=== PATIENT | female | born 1985 | race Asian ===

== ENCOUNTER 2016-10-31 10:02 | Emergency (ER) | payer MEDICAID ==
[~2016-10-31] VITALS: Ht 160 cm; Wt 60.0 kg
[2016-10-31 10:22] VITALS: BP 122/81
[2016-10-31] MEDS ORDERED: ACETAMINOPHEN 325MG TABLET PO STA (11:20)
[2016-10-31 11:57] LABS: GLUCOSE URINE NEGATIVE (NEGATIVE); KETONES URINE NEGATIVE (NEGATIVE); LEUKOCYTE ESTERASE URINE NEGATIVE (NEGATIVE); NITRITE URINE NEGATIVE (NEGATIVE); OCCULT BLOOD URINE 1+ (NEGATIVE); PROTEIN URINE NEGATIVE (NEGATIVE); SPECIFIC GRAVITY URINE 1.012 (1.005-1.030); UROBILINOGEN URINE 0.2 E.U./dL (0.2-1.0)
[2016-10-31 11:59] LABS: CLARITY URINE CLEAR (CLEAR); COLOR URINE YELLOW (YELLOW)
[2016-10-31 12:09] LABS: BASOPHILS % 1.1 % (0.0-2.0); HEMATOCRIT. 43.9 % (36.0-48.0); HEMOGLOBIN. 14.5 g/dL (12.0-16.0); LYMPHOCYTES % 26.2 % (20.0-50.0); MEAN CORPUSCULAR HEMOGLOBIN 30.2 pg (28.0-32.0); MEAN CORPUSCULAR HGB CONC 33.1 g/dL (31.0-37.0); MEAN CORPUSCULAR VOLUME 91.2 fL (81.0-99.0); MEAN PLATELET VOLUME 9.2 fl (7.4-10.4); MONOCYTES % 9.3 % (2.0-8.0); NEUTROPHILS % 60.4 % (40.0-76.0); PLATELET 273 x1000/uL (130-400); RED BLOOD CELL COUNT 4.81 mill/uL (4.2-5.4); WHITE BLOOD COUNT 6.9 x1000/uL (4.5-11.0)
[2016-10-31 12:15] LABS: PROTHROMBIN TIME 10.6 sec
[2016-10-31 12:21] LABS: AMORPHOUS SEDIMENT URINE 2+ /lpf; BACTERIA URINE TRACE; RBC URINE 0-2 /hpf (0-2); SQUAMOUS EPITHELIAL CELL URINE 2+ /lpf (RARE/1+); WBC URINE 0-2 /hpf (0-2)
[2016-10-31 12:25] LABS: ALANINE AMINOTRANSFERASE 22 IU/L (13-61); ALBUMIN 3.6 g/dL (3.4-5.0); ANION GAP 11; CALCIUM 8.4 mg/dL (8.5-10.1); CARBON DIOXIDE 30 mEq/L (21-32); CHLORIDE 104 mEq/L (98-107); INDEX HEMOLYSI 1 (1-3); INDEX ICTERIC 1 (1-4); INDEX LIPEMIC 1 (1-3); LIPASE 144 IU/L (73-393); UREA NITROGEN BLOOD 6 mg/dL (7-21); eGFR > 60 mL/min (>60)
[2016-10-31 12:26] LABS: B-HCG QUANTITATIVE < 1 mIU/mL (<3)
[2016-11-02 04:14] LABS: CHLAMYDIA TRACHOMATIS NAA Negative (Negative); NEISSERIA GONORRHOEAE NAA Negative (Negative)
== END 2016-10-31 14:19 | disposition home or self-care (01) ==
LOC: ER 11:26
DX: R10.9 Unspecified abdominal pain (principal)
CPT/HCPCS: 36415; 76830; 76856; 80053; 81001; 81025; 83690; 84702; 85025; 85610; 86850; 86900; 87210; 87491; 87591; 99285

== ENCOUNTER 2019-07-28 05:37 | Emergency (ER) | payer MEDICAID ==
[2019-07-28] MEDS ORDERED: MECLIZINE 25MG TABLET PO ONE (13:00)
[2019-07-28 13:16] VITALS: BP 114/84
== END 2019-07-28 13:14 | disposition home or self-care (01) ==
LOC: ER 05:37
DX: H81.10 Benign paroxysmal vertigo, unspecified ear (principal); R11.0 Nausea
CPT/HCPCS: 99283; J8597

== ENCOUNTER 2019-10-11 11:31 | Emergency (ER) | payer MEDICAID ==
[~2019-10-11] VITALS: Ht 160 cm; Wt 63.0 kg
[2019-10-11 11:38] VITALS: BP 156/96
== END 2019-10-11 12:23 | disposition home or self-care (01) ==
LOC: ER 11:36
DX: L03.90 Cellulitis, unspecified (principal); M79.622 Pain in left upper arm; Z98.890 Other specified postprocedural states
CPT/HCPCS: 99283

== ENCOUNTER 2022-06-14 12:00 | Emergency (ER) | payer MEDICAID, OTHER ==
[~2022-06-14] VITALS: Ht 160 cm; Wt 64.0 kg
[2022-06-14 12:11] VITALS: BP 144/89
[2022-06-14] MEDS ORDERED: CEPH500T MT (13:19)
[2022-06-14] MEDS ORDERED: CHLO118L5 TP (13:22)
== END 2022-06-14 14:05 | disposition home or self-care (01) ==
LOC: ER 12:00
DX: L03.317 Cellulitis of buttock (principal); L02.31 Cutaneous abscess of buttock
CPT/HCPCS: 99283

== ENCOUNTER 2022-12-17 15:18 | Emergency (ER) | payer MEDICAID, OTHER ==
[~2022-12-17] VITALS: Ht 160 cm; Wt 64.0 kg
[~2022-12-17 15:18] MED LIST: CEPH500T MT; CHLO118L5 TP
[2022-12-17 15:33] VITALS: BP 126/90
[2022-12-17] MEDS ORDERED: MELO-105 MT (18:48)
[2022-12-17 19:30] LABS: CLARITY URINE CLOUDY (CLEAR); COLOR URINE YELLOW (YELLOW); KETONES URINE NEGATIVE (NEGATIVE); LEUKOCYTE ESTERASE URINE NEGATIVE (NEGATIVE); NITRITE URINE NEGATIVE (NEGATIVE); OCCULT BLOOD URINE NEGATIVE (NEGATIVE); PROTEIN URINE NEGATIVE (NEGATIVE); SPECIFIC GRAVITY URINE 1.019 (1.005-1.030)
== END 2022-12-17 19:38 | disposition home or self-care (01) ==
LOC: ER 17:11
DX: M25.552 Pain in left hip (principal)
CPT/HCPCS: 81003; 99283

== ENCOUNTER 2023-08-06 11:28 | Emergency (ER) | payer MEDICAID, OTHER ==
[~2023-08-06] VITALS: Ht 165.1 cm; Wt 59.0 kg
[~2023-08-06 11:28] MED LIST changes: +MELO-105 MT
[2023-08-06 11:37] VITALS: O2SAT 100
[2023-08-06] MEDS ORDERED: TOPUD MT (14:52)
[2023-08-06] MEDS ORDERED: CIPHCO EACH EAR (14:52)
[2023-08-06 15:12] VITALS: BP 135/96; PULSE 63; RESP 15; TEMP 97.9
== END 2023-08-06 15:16 | disposition home or self-care (01) ==
LOC: ER 11:28
DX: H61.23 Impacted cerumen, bilateral (principal)
CPT/HCPCS: 99283

== ENCOUNTER 2023-09-10 22:56 | Emergency (ER) | payer OTHER ==
[~2023-09-10] VITALS: Ht 160 cm; Wt 65.3 kg
[~2023-09-10 22:56] MED LIST changes: +CIPHCO EACH EAR; +TOPUD MT
[2023-09-10 22:59] VITALS: BP 142/82; TEMP 98.3
[2023-09-11] MEDS ORDERED: ALBUTEROL (0.083%) 2.5MG/3ML NEB HHN ONE (01:45)
[2023-09-11] MEDS ORDERED: PREDNISONE 20MG TABLET PO ONE (01:45)
[2023-09-11 02:01] VITALS: PULSE 66; RESP 16; O2SAT 98
[2023-09-11] MEDS ORDERED: P50 MT (02:13)
[2023-09-11] MEDS ORDERED: ALBU18HF2 IH (02:13)
[2023-09-11 02:41] VITALS: PULSE 77; RESP 16
== END 2023-09-11 02:47 | disposition home or self-care (01) ==
LOC: ER 09-11 00:07
DX: B34.9 Viral infection, unspecified (principal); R06.02 Shortness of breath
CPT/HCPCS: 81025; 71045; 94640; 99283; Z7610 ×3; J7512

== ENCOUNTER 2024-06-16 22:29 | Emergency (ER) | payer OTHER ==
[~2024-06-16] VITALS: Ht 160 cm; Wt 64.7 kg
[~2024-06-16 22:29] MED LIST changes: +ALBU18HF2 IH; +P50 MT
[2024-06-16 22:39] VITALS: TEMP 98.2; O2SAT 98
[2024-06-17 00:28] LABS: BASOPHILS % 0.4 % (0.0-2.0); EOSINOPHILS % 0.3 % (0.0-5.0); HEMOGLOBIN. 14.2 g/dL (12.0-16.0); LYMPHOCYTES % 13.4 % (20.0-50.0); MEAN CORPUSCULAR HEMOGLOBIN 30.8 pg (28.0-32.0); MEAN CORPUSCULAR HGB CONC 33.8 g/dL (31.0-37.0); MEAN CORPUSCULAR VOLUME 91.2 fL (81.0-99.0); MEAN PLATELET VOLUME 9.1 fl (7.4-10.4); NEUTROPHILS % 77.9 % (40.0-76.0); PLATELET 317 x1000/uL (130-400); RED CELL DISTRIBUTION WIDTH 13.5 % (11.6-14.6); WHITE BLOOD COUNT 13.5 x1000/uL (4.5-11.0)
[2024-06-17 00:33] LABS: CHLORIDE 109 mEq/L (98-107); SODIUM 140 mEq/L (136-145)
[2024-06-17 00:34] LABS: CALCIUM 9.3 mg/dL (8.7-10.4); CARBON DIOXIDE 25 mEq/L (21-32)
[2024-06-17 00:39] LABS: CREATININE 0.7 mg/dL (0.6-1.0); GLUCOSE 128 mg/dL (70-105); UREA NITROGEN BLOOD 12 mg/dL (9-23)
[2024-06-17 00:54] LABS: TROPONIN I HIGH SENSITIVITY < 4 ng/L (3.0-34)
[2024-06-17 00:58] LABS: HCG SCREEN NEGATIVE
[2024-06-17] MEDS: LORAZEPAM 1MG TABLET PO ONE (01:00)
[2024-06-17 01:24] VITALS: BP 133/77; PULSE 70; RESP 16; O2SAT 98
== END 2024-06-17 01:24 | disposition home or self-care (01) ==
LOC: ER 22:29
DX: R07.89 Other chest pain (principal); R00.2 Palpitations; Z98.51 Tubal ligation status; Z79.899 Other long term (current) drug therapy
CPT/HCPCS: 36415; 71045; 80048; 84484; 84703; 85025; 93005; 99285